=== PATIENT | male | born 1950 | race Caucasian/White ===

== ENCOUNTER → 2020-11-17 13:09 | Outpatient (CLI) | payer OTHER, SELFPAY ==
--- NOTE | 2020-12-06 08:24 | P.HOLT.S_ITS ---
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 Referral & Results Date Patient Seen: 11/17/20 Requesting provider: Betito Victoria Indication: Dizziness Duration of monitoring (days): 7 Diary information: There were 4 patient triggered events and 2 patient diary entries Patient triggered events were associated with (within 45 seconds) sinus rhythm, PVCs, and PACs Patient diary events were associated with (within 45 seconds) sinus rhythm and PVCs Data: Minimum heart rate identified was 53 beats per minute at 06:51 on 11/19/2020 Maximum sinus heart rate was 127 beats per minute at 08:29 on 11/19/2020 Maximum overall heart rate was 200 beats per minute at 07:55 on 11/20/2020 during a run of ventricular tachycardia Less than 1% of identified beats were supraventricular ectopic in origin Approximately 2% of identified beats were ventricular ectopic in origin which were classify them as occasional, this includes a 23.5 sec run of ventricular trigeminy and a 10.1 sec run of ventricular bigeminy There were 3 runs of monomorphic nonsustained ventricular tachycardia the fastest being an 8 beat run at 200 beats per minute as above, this was also the longest run There were 33 runs of supraventricular tachycardia with the fastest at 179 beats per minute the longest lasting 21.0 seconds Impression: Patient with very rare brief runs of nonsustained monomorphic ventricular tachycardia as above Patient was somewhat more frequent very brief runs of SVT as well Patient with occasional PVCs Clinical correlation suggested
== END ==
PROVIDERS: PCP Student in an Organized Health Care Education/Training Program; Referring Provider Student in an Organized Health Care Education/Training Program; Visit Provider Student in an Organized Health Care Education/Training Program
DX: R42 Dizziness and giddiness (principal)
CPT/HCPCS: 93242; 93244

== ENCOUNTER → 2021-03-03 07:58 | Outpatient (CLI) | payer OTHER, SELFPAY ==
--- NOTE | 2021-03-03 07:58 | DI.US.S_ITS ---
PROCEDURE: US ABDOMEN LIMITED INDICATIONS: POSSIBLE SPLENOMEGALY TECHNIQUE: Real-time focused scanning was performed of the abdomen, with image documentation. COMPARISON: None. FINDINGS: Targeted single organ assessment was performed at clinician request. The craniocaudad length of the spleen is abnormal at 19.1 cm, and the overall calculated splenic volume is 660 cc, enlarged. Splenic vein is patent. Two small splenic nodules are found at the hilum, measuring up to 1.6 cm and 1.4 cm, respectively. IMPRESSION: Splenomegaly, 2 small splenule set the splenic hilum. Dictated by: David Santos M.D. on 03/03/2021 at 11:05 Approved by: David Santos M.D. on 03/03/2021 at 11:06
== END ==
PROVIDERS: PCP Student in an Organized Health Care Education/Training Program; Referring Provider Internal Medicine Hematology & Oncology; Visit Provider Internal Medicine Hematology & Oncology
DX: R16.1 Splenomegaly, not elsewhere classified (principal); D73.9 Disease of spleen, unspecified
CPT/HCPCS: 76705

== ENCOUNTER 2021-09-25 08:39 | Emergency (ER) | payer MEDICARE, SELFPAY ==
[2021-09-25] VITALS (8 sets, daily range): BP systolic 153–179; BP diastolic 70–86; PULSE 64–67; RESP 16–20; TEMP 36.3; O2SAT 96–99; BMI 31.4
--- NOTE | 2021-09-25 09:17 | DI.CT.S_ITS ---
PROCEDURE: CT HEAD/BRAIN WO CON INDICATIONS: double vision, 6th nerve palsy, hx myelofibrosis, hx AAA TECHNIQUE: Noncontrast 4.5 mm thick angled axial sections acquired from the foramen magnum to the vertex, with coronal and sagittal reformats. For radiation dose reduction, the following was used: automated exposure control, adjustment of mA and/or kV according to patient size. COMPARISON: None. FINDINGS: Image quality: Excellent. CSF spaces: Basal cisterns are patent. No extra-axial fluid collections. The ventricles are symmetric in size and shape. Brain: No intracranial bleeds or masses. There is cerebral volume loss for age, with resultant ventricular and sulcal prominence. There are periventricular and deep white matter chronic small vessel ischemic changes. There is intracranial internal carotid artery atherosclerosis. Skull and face: Calvarium and visualized facial bones appear intact, without suspicious lesions. Sinuses: Visualized sinuses and mastoids are clear. IMPRESSION: 1. No acute intracranial process. 2. Moderate atrophy and chronic microvascular ischemic changes. Dictated by: Anais Vickers M.D. on 09/25/2021 at 10:10 Approved by: Anais Vickers M.D. on 09/25/2021 at 10:12
--- NOTE | 2021-09-25 09:23 | ED.NEUROSD ---
HPI - Neuro Symptoms/Deficit General Chief Complaint: Neuro Symptoms/Deficit Stated Complaint: possible stroke Time Seen by Provider: 09/25/21 08:45 Source: patient and family Mode of arrival: Wheelchair Limitations: no limitations History of Present Illness HPI Narrative: This is a 71-year-old male who comes with complaint of 1 week of double vision and 4 days of difficulty with movement of his his eyes himself. Patient states left eye will not track appropriately. Patient has a history of suspected myelofibrosis he is on Blas a fee but states that he is the process of being seen by secondary specialty doc is his medications have not been working he has received 5 transfusions of packed red blood cells since 08/28 the most recent was 6 days ago. They suspect that his diagnosis maybe slightly wrong and are working to follow up with a different specialty doc with Dr. Owen his oncologist. He has hypertension, hypothyroid and, known AAA that is 4.1 cm he follows with Dr. Roew through [facility] in [place]. Patient states he has not had similar symptoms in the past. He has had a longstanding left eye proptosis for 25 years which has been measured and followed but no exact cause has been found. Patient states that he was treated for a suspected temporal arteritis years ago was initially on a week of steroids, change to methotrexate was discharged in January of 2021. Patient states that he has been noticing some vision changes for the past month. He has noted for the past week his gait felt a little bit off. He has had a little bit a headache over the left eye for the last several days on and off. He has a history of positional vertigo but has not been having any symptoms recently. No chest pain, some occasional shortness of breath. He has had some nausea but no vomiting. No diarrhea constipation. No bright red blood or melanotic stools. No urinary incontinence or changes. He denies any numbness, weakness or tingling of his extremities. On Anticoagulants: No Related Data Home Medications Medication Instructions Recorded Confirmed furosemide 20 mg tablet 20 mg PO QAM 03/30/21 07/27/21 carvedilol 6.25 mg tablet (Coreg) 6.25 mg PO PRN PRN 07/27/21 07/27/21 Previous Rx's Medication Instructions Recorded levothyroxine 150 mcg capsule 150 mcg PO DAILY #90 cap 08/04/21 ruxolitinib 10 mg tablet (Jakafi) 10 mg PO BID #60 tab 09/18/21 Allergies Allergy/AdvReac Type Severity Reaction Status Date / Time No Known Drug Allergies Allergy Unverified 03/30/21 08:40 Review of Systems Review of Systems ROS Unobtainable: All systems reviewed & are unremarkable except as noted in HPI and below Hematologic/Lymphatic On Anticoagulants: No Patient History Medical History Hyperlipidemia Hypothyroidism Psoriasis Surgical History History of colonoscopy Family History Grandfather Colon cancer Mother COPD (chronic obstructive pulmonary disease) Social History Smoking Status: Former smoker alcohol intake: former substance use type: does not use Smoking Status: Former smoker Substance Use Type: does not use Exam Narrative Exam Narrative: GEN: well nourished, well appearing male, alert and oriented x 3, patient appears to be in mild distress. HEENT: Atraumatic, pupils are equal round reactive to light, extraocular movements appear intact with the right, on the left but has difficulty with gaze inwards. Does not appear to have obvious afferent or efferent defect. Visual acuity: right [20/50], left [20/40] with correction (glasses). General: no globe trauma Eyelids: normal inspection Conjunctiva/Sclera: normal inspection Corneas: normal inspection EOM: intact, + palsy on left. Pupils: PERRL, normal accomadation, pupil normal Anterior Chambers: normal inspection, no hypema Posterior: difficulty to examine but no obvious changes. nares are clear, TMs are clear with no fluid, there is no conjunctival pallor. Throat is clear without any exudates, erythema, tonsillar enlargement or uvular deviation. No facial droop. HEART: Regular rate and rhythm without murmur, clicks, rubs. LUNGS:Lungs clear to auscultation, no wheezes, rales, crackles, chest moves symmetrically ABD:bowel sounds normal, soft, non-tender, no guarding, rebound, rigidity, no masses noted, no hepatosplenomegaly :No CVA tenderness MSCL: Non-tender, no muscle atrophy, muscles strength 5/5 upper and lower extremities, full range of motion, normal gait NEURO:CN 2-12 intact, sensation normal, finger nose finger test normal, heel frias test normal SKIN: Initial Vital Signs Initial Vital Signs: Vital Signs Temperature 97.4 F L 09/25/21 08:54 Pulse Rate 67 09/25/21 08:54 Respiratory Rate 18 09/25/21 08:54 Blood Pressure 179/86 H 09/25/21 08:54 Pulse Oximetry 97 09/25/21 08:54 Scores NIH Stroke Scale Level of Conciousness: Alert, keenly responsive Ask month/age: Answers both questions correctly. Open/close eyes, close hand: Performs both tasks correctly Best gaze horizontal: Forced deviation or total gaze paresis not overcome Visual bill: No visual loss Facial palsy: Normal symetrical movement Left arm drift: No drift for full 10 sec Right arm drift: No drift for full 10 sec Left leg drift: No drift for full 5 sec Right leg drift: No drift for full 5 sec Limb ataxia: Absent Sensory on face/arms/legs: Normal, no sensory loss Best language: No aphasia, normal Dysarthria: Normal Extinction or inattention: No abnormality Total NIH Stroke scale score: 2 Course Orders Ordered: Discontinued Medications Sodium Chloride (Normal Saline 0.9%) 1,000 mls @ 150 mls/hr IV CONT ANA LAURA Last Infusion: 09/25/21 11:59 Dose: 0 mls/hr Documented by: Admin: 09/25/21 10:15 Dose: 150 mls/hr Documented by: MARYAM Reevaluation(s) Reevaluation #1: Discussed with patient his findings CT CT angiography and lab work today. At this time I had consulted with Ophthalmology. They are happy to see the patient today. Will defer MRI at this time but if ophthalmology feels differently patient's will be returned for additional imaging. Otherwise he may require MRI outpatient. Patient states he is already set up an appointment with his retinal specialist in a week as well and has some additional follow-up in place. Time: 11:48 Consultations Consultation #1: Dr. Amor with ophthalmology, discussed a days findings patient's medical history. He would be happy to see the patient in the office he does not feel that MRI today is necessary but if patient had persistent symptoms would potentially be appropriate. Vital Signs Vital signs: Vital Signs - 8 hr 09/25/21 11:32 09/25/21 11:33 Blood Pressure 177/83 H 177/83 H MDM - Neuro Symptoms/Deficit Lab Data Result diagrams: 09/25/21 09:45 Labs: Lab Results 09/25/21 09/25/21 09/25/21 Range/Units 09:45 09:45 09:45 ESR 42 H (0-15) MM/HR PT 15.3 H (10.1-12.7) SECONDS INR 1.3 (0.9-1.3) APTT 40 H (26.4-36.2) SECONDS Sodium 141 (137-145) mmol/L Potassium 4.2 (3.4-5.1) mmol/L Chloride 108 H (98-107) mmol/L Carbon Dioxide 29 (22-32) mmol/L BUN 14 (9-20) mg/dL Creatinine 1.29 H (0.66-1.25) mg/dL Estimated GFR 54.7 L (>60) mL/min BUN/Creatinine Ratio 10.9 (6-22) Glucose 92 (80-110) mg/dL Calcium 8.6 (8.4-10.2) mg/dL Total Bilirubin 0.4 (0.2-1.3) mg/dL AST 44 (17-59) IU/L ALT 21 (<50) IU/L Alkaline Phosphatase 59 (38-126) U/L C-Reactive Protein (<1.0) mg/dL Total Protein 7.0 (6.3-8.2) g/dL Albumin 4.5 (3.5-5.0) g/dL Globulin 2.5 (1.7-4.1) g/dL Albumin/Globulin Ratio 1.8 (1.0-2.8) 09/25/21 Range/Units 09:45 ESR (0-15) MM/HR PT (10.1-12.7) SECONDS INR (0.9-1.3) APTT (26.4-36.2) SECONDS Sodium (137-145) mmol/L Potassium (3.4-5.1) mmol/L Chloride (98-107) mmol/L Carbon Dioxide (22-32) mmol/L BUN (9-20) mg/dL Creatinine (0.66-1.25) mg/dL Estimated GFR (>60) mL/min BUN/Creatinine Ratio (6-22) Glucose (80-110) mg/dL Calcium (8.4-10.2) mg/dL Total Bilirubin (0.2-1.3) mg/dL AST (17-59) IU/L ALT (<50) IU/L Alkaline Phosphatase (38-126) U/L C-Reactive Protein < 0.5 (<1.0) mg/dL Total Protein (6.3-8.2) g/dL Albumin (3.5-5.0) g/dL Globulin (1.7-4.1) g/dL Albumin/Globulin Ratio (1.0-2.8) Imaging Data CT scan - head: Radiologist's Impression: Gaudencio Hodge??71??M??1950 ? Allergy/Adv: No Known Drug Allergies (More??) Close Head/Neck CTA (Signed) Dickson Aguilar - 09/25/[address] (Signed) Anais Vickers - 09/25/21 Outside Echo 05/26/21 Abdomen Ultrasound (Signed) David Santos - 03/03/21 Launch?[place] [address] CT Scan Report Signed Patient: Gaudencio Hodge MR#: [id number] : 1950 Acct:[id number] Age/Sex: 71 / M Date of Service: 09/25/21 Loc: ED Accession Number: [id number] ?? Procedure: CT head/brain wo con Ordering Provider: Breanna Prince D.O. PROCEDURE:? CT HEAD/BRAIN WO CON ? INDICATIONS:? double vision, 6th nerve palsy, hx myelofibrosis, hx AAA ? TECHNIQUE:? Noncontrast 4.5 mm thick angled axial sections acquired from the foramen magnum to the vertex, with coronal and sagittal reformats.? For radiation dose reduction, the following was used:? automated exposure control, adjustment of mA and/or kV according to patient size.? ? COMPARISON:? None. ? FINDINGS:? Image quality:? Excellent.? ? CSF spaces:? Basal cisterns are patent.? No extra-axial fluid collections.? The ventricles are symmetric in size and shape.? ? Brain:? No intracranial bleeds or masses.? There is cerebral volume loss for age, with resultant ventricular and sulcal prominence.? There are periventricular and deep white matter chronic small vessel ischemic changes.? There is intracranial internal carotid artery atherosclerosis.? ? Skull and face:? Calvarium and visualized facial bones appear intact, without suspicious lesions.? ? Sinuses:? Visualized sinuses and mastoids are clear.? ? IMPRESSION:? ? 1. No acute intracranial process. ? 2. Moderate atrophy and chronic microvascular ischemic changes. ? ? ? Dictated by: Anais Vickers M.D. on 09/25/2021 at 10:10 ? ? Approved by: Anais Vickers M.D. on 09/25/2021 at 10:12?? CTA - brain/neck: Radiologist's Impression: [place] [address] CT Scan Report Signed Patient: Gaudencio Hodge MR#: [id number] : 1950 Acct:[id number] Age/Sex: 71 / M Date of Service: 09/25/21 Loc: ED Accession Number: [id number] ?? Procedure: CT angio head and neck Ordering Provider: Breanna Prince D.O. PROCEDURE:? CT ANGIO HEAD AND NECK ? INDICATIONS:? double vision, 6th nerve palsy, hx myelofibrosis ? TECHNIQUE:? Noncontrast images were performed earlier in the day and not repeated.? ? After the administration of intravenous contrast, 1 mm thick sections acquired from the aortic arch through the [place].? Post-contrast 4.5 mm thick sections then re-acquired from the foramen magnum to the vertex.? 3-dimensional mbbhemd-wlczvthum-kmnjjbxtox (MIP) and/or volume rendering reformats were acquired of the central intracranial vasculature and neck separately. ? COMPARISON:? Located Within [facility], CT, NECK SOFT TIS. W/CONTRAST, 03/01/2015, 12:37.? [facility], CT, CT HEAD/BRAIN WO CON, 09/25/2021, 9:30.? Located Within [facility], CT, CT ANGIO CHEST PE, 03/22/2021, 2:13. ? FINDINGS:? Image quality:? Excellent.? ? BRAIN:? CSF spaces:? Ventricles are normal in size and shape.? Basal cisterns are patent.? No extra-axial fluid collections.? ? Brain:? No midline shift.? No intracranial bleeds or masses.? Welch-white matter interface appears intact.? ? Skull and face:? Calvarium and facial bones appear intact, without suspicious lesions.? Orbits appear normal.? ? Sinuses:? Sinuses and mastoids are clear.? ? HEAD CT ANGIOGRAPHY:? Anterior circulation:? Intracranial internal carotid arteries are normal in size and flow.? The flow within the paired anterior cerebral arteries is normal and symmetric.? The flow within the middle cerebral arteries is normal and symmetric.? The anterior communicating artery is seen.? No aneurysms are seen.? ? Posterior circulation:? Visualized portions of the vertebral arteries demonstrate normal caliber, and join to form a normal appearing basilar artery.? There is a prominent left posterior communicating artery seen, with an accompanying diminutive left P1 segment. This is attributed to a type origin of the left posterior cerebral artery, which is considered to be a normal developmental variant of typically no clinical consequence. Flow within the posterior cerebral arteries is normal and symmetric.? No aneurysms are seen.? ? NECK CT ANGIOGRAPHY:? Carotid system:? The great vessels demonstrate a conventional anatomy as they arise from the aortic arch.? The origins of the common carotid arteries appear patent.? The common carotid arteries demonstrate normal caliber and courses.? The bifurcation regions are both widely patent.? The internal carotid arteries demonstrate normal calibers and courses.? ? Posterior circulation:? The origins of the vertebral arteries both appear widely patent.? The more superior extracranial portions of both vertebral arteries also demonstrate normal courses and calibers.? The left vertebral artery is dominant to the right. ? Soft tissues:? Visualized neck soft tissues demonstrate no suspicious abnormalities.? ? Bones:? The bones demonstrate a generalized mildly chalky appearance, which is consistent with the given clinical history.? Moderate to severe disc space narrowing can be seen at C5-C6 and C6-C7.? The ossification of the posterior longitudinal ligament can be seen inferiorly.? Bridging of anterior osteophytes can be seen C3 through T1. Focal degenerative change is seen involving the C1-C2 interface anteriorly. ? ? IMPRESSION:? No hemodynamically significant stenosis can be seen within the intracranial circulation or within the arteries of neck.? ? Bony abnormalities are seen, which are consistent with the given clinical history.? Degenerative changes also seen. ? ? Incidental note is made of: type origin of the left vertebral artery Left vertebral artery dominant to the right ? ? Any quantitative measurements of stenosis were performed using NASCET criteria.? ? ? Dictated by: Dickson Aguilar M.D. on 09/25/2021 at 9:41 ? ? Approved by: Dickson Aguilar M.D. on 09/25/2021 at 9:45?? ECG Data Attestation: I personally reviewed and interpreted this ECG as follows: Prior ECG tracings: available for review Interpretation: Sinus rhythm rate of 70 2p are 198 QRS 86 and QTC 453. No acute ST changes appreciated. Q-wave in V1 through V3. Patient has prior from 02/03/2019 which appears similar. MDM Narrative Medical decision making narrative: This is a 71-year-old male who has had double vision for approximately a week with obvious gaze palsy of 1 eye for the past 4 days. Patient is retired salesperson fashion accessories and is well educated about his findings today. He does have a history of myelofibrosis although this diagnosis is possibly going to change. He is having recurrent and frequent transfusions of packed red blood cells. Head CT and angiography are negative, patient's labs do not show any acute changes. Discussed with ophthalmology he appears to have an isolated cranial nerve palsy causing his symptoms today. They recommend MRI if patient has persistent symptoms over long time but not today and are happy to see him in the office for further evaluation and recommendations. Discussed with patient he is open to this and went directly to Dr. Amor office for evaluation. He also has follow-up in 1 week with his retinal specialist. Discharge Plan Departure Patient Disposition: Home Clinical Impression: Diplopia, Cranial nerve palsy Activity Restrictions/Additional Instructions: Follow-up with ophthalmology. Go directly to Dr. Amor is office. They are expecting you today. Prescriptions: No Action levothyroxine 150 mcg capsule 150 mcg PO DAILY Qty: 90 1RF furosemide 20 mg tablet 20 mg PO QAM 0RF carvedilol [Coreg] 6.25 mg Tablet 6.25 mg PO PRN PRN (Reason: Blood Pressure) 0RF Jakafi 10 mg Tablet 10 mg PO BID Qty: 60 11RF Referrals: Betito Victoria MD [Primary Care Provider] -
--- NOTE | 2021-09-25 09:26 | DI.CT.S_ITS ---
PROCEDURE: CT ANGIO HEAD AND NECK INDICATIONS: double vision, 6th nerve palsy, hx myelofibrosis TECHNIQUE: Noncontrast images were performed earlier in the day and not repeated. After the administration of intravenous contrast, 1 mm thick sections acquired from the aortic arch through the [place] of [place]. Post-contrast 4.5 mm thick sections then re-acquired from the foramen magnum to the vertex. 3-dimensional quqdluh-oxgdtmknr-wxkfdnubft (MIP) and/or volume rendering reformats were acquired of the central intracranial vasculature and neck separately. COMPARISON: [facility], CT, NECK SOFT TIS. W/CONTRAST, 03/01/2015, 12:37. [facility], CT, CT HEAD/BRAIN WO CON, 09/25/2021, 9:30. [facility], CT, CT ANGIO CHEST PE, 03/22/2021, 2:13. FINDINGS: Image quality: Excellent. BRAIN: CSF spaces: Ventricles are normal in size and shape. Basal cisterns are patent. No extra-axial fluid collections. Brain: No midline shift. No intracranial bleeds or masses. Welch-white matter interface appears intact. Skull and face: Calvarium and facial bones appear intact, without suspicious lesions. Orbits appear normal. Sinuses: Sinuses and mastoids are clear. HEAD CT ANGIOGRAPHY: Anterior circulation: Intracranial internal carotid arteries are normal in size and flow. The flow within the paired anterior cerebral arteries is normal and symmetric. The flow within the middle cerebral arteries is normal and symmetric. The anterior communicating artery is seen. No aneurysms are seen. Posterior circulation: Visualized portions of the vertebral arteries demonstrate normal caliber, and join to form a normal appearing basilar artery. There is a prominent left posterior communicating artery seen, with an accompanying diminutive left P1 segment. This is attributed to a type origin of the left posterior cerebral artery, which is considered to be a normal developmental variant of typically no clinical consequence. Flow within the posterior cerebral arteries is normal and symmetric. No aneurysms are seen. NECK CT ANGIOGRAPHY: Carotid system: The great vessels demonstrate a conventional anatomy as they arise from the aortic arch. The origins of the common carotid arteries appear patent. The common carotid arteries demonstrate normal caliber and courses. The bifurcation regions are both widely patent. The internal carotid arteries demonstrate normal calibers and courses. Posterior circulation: The origins of the vertebral arteries both appear widely patent. The more superior extracranial portions of both vertebral arteries also demonstrate normal courses and calibers. The left vertebral artery is dominant to the right. Soft tissues: Visualized neck soft tissues demonstrate no suspicious abnormalities. Bones: The bones demonstrate a generalized mildly chalky appearance, which is consistent with the given clinical history. Moderate to severe disc space narrowing can be seen at C5-C6 and C6-C7. The ossification of the posterior longitudinal ligament can be seen inferiorly. Bridging of anterior osteophytes can be seen C3 through T1. Focal degenerative change is seen involving the C1-C2 interface anteriorly. IMPRESSION: No hemodynamically significant stenosis can be seen within the intracranial circulation or within the arteries of neck. Bony abnormalities are seen, which are consistent with the given clinical history. Degenerative changes also seen. Incidental note is made of: type origin of the left vertebral artery Left vertebral artery dominant to the right Any quantitative measurements of stenosis were performed using NASCET criteria. Dictated by: Dickson Aguilar M.D. on 09/25/2021 at 9:41 Approved by: Dickson Aguilar M.D. on 09/25/2021 at 9:45
[2021-09-25 10:02] LABS: INR 1.3 (0.9-1.3); Prothrombin Time 15.3 SECONDS (10.1-12.7)
[2021-09-25 10:05] LABS: PTT Partial Thromboplastin Tim 40 SECONDS (26.4-36.2)
[2021-09-25 10:08] LABS: Alanine Aminotransferase 21 IU/L (<50); Albumin 4.5 g/dL (3.5-5.0); Albumin Globulin Ratio 1.8 (1.0-2.8); Alkaline Phosphatase 59 U/L (38-126); Aspartate Aminotransferase 44 IU/L (17-59); BUN Creatinine Ratio 10.9 (6-22); Bilirubin Total 0.4 mg/dL (0.2-1.3); Blood Urea Nitrogen 14 mg/dL (9-20); Calcium 8.6 mg/dL (8.4-10.2); Carbon Dioxide 29 mmol/L (22-32); Chloride 108 mmol/L (98-107); Estimated Glomerular Filt Rate 54.7 mL/min (>60); Globulin 2.5 g/dL (1.7-4.1); Glucose 92 mg/dL (80-110); HEMOLYSIS < 15 (0-50); Potassium 4.2 mmol/L (3.4-5.1); Sodium 141 mmol/L (137-145)
[2021-09-25 10:12] LABS: C-Reactive Protein Quant < 0.5 mg/dL (<1.0)
[2021-09-25 10:13] LABS: Erythrocyte Sedimentation Rate 42 MM/HR (0-15)
[2021-09-25] MEDS: SODIUM CHLORIDE 0.9% 1,000 ML 150 ML IV (10:15)
--- NOTE | 2021-09-25 13:30 | PC.NURSE ---
stroke type symptoms: pt and arrived to clinic this morning wanting to speak with a nurse. Pt reported increase double vision and left eye not tracking. pt reports trouble walking; my gait isn't right. states he has had high BP too. pt states double vision x1 week but is getting worse. This RN encouraged pt to go to ED for Evaluation for stroke. pt agrees and taken via wheelchair.
== END 2021-09-25 12:02 | disposition home or self-care (01) ==
PROVIDERS: Emergency Provider Emergency Medicine; PCP Student in an Organized Health Care Education/Training Program
DX: H53.2 Diplopia (principal); G52.9 Cranial nerve disorder, unspecified; R51.9 Headache, unspecified; R03.0 Elevated blood-pressure reading, without diagnosis of hypertension; D47.1 Chronic myeloproliferative disease; D64.9 Anemia, unspecified
CPT/HCPCS: 36415; 70450; 70496; 70498; 80053; 85007; 85025; 85610; 85651; 85730; 86140; 93005; 93010; 96360; 96361; 99285

== ENCOUNTER → 2021-12-11 12:49 | Outpatient (CLI) | payer MEDICARE, SELFPAY ==
--- NOTE | 2021-12-11 12:50 | DI.CT.S_ITS ---
PROCEDURE: CT CHEST WO CON INDICATIONS: AML, lung opacities. TECHNIQUE: Noncontrast 5 mm thick sections acquired from the pulmonary apices to the posterior costophrenic angles. 1 mm lung window, 5 mm thick coronal and sagittal and 7 mm axial MIP reformats were then acquired. For radiation dose reduction, the following was used: automated exposure control, adjustment of mA and/or kV according to patient size. COMPARISON: [facility], CT, CT ANGIO CHEST PE, 03/22/2021, 2:13. [facility], CT, CT ANGIO CHEST, 04/14/2020, 9:55. FINDINGS: Image quality: Excellent. Lungs and pleura: Left basilar pleural effusion is present. Peripheral interlobular septal thickening is present and associated with bilateral lower lobe peripheral consolidation. Additionally, there is prominence of the bilateral lower lobe bronchi. Mediastinum: Heart size is normal. No pericardial effusion. No mediastinal adenopathy by size criteria. Ascending thoracic aorta now measures 4.4 cm in diameter, previously 4.1 cm. Esophagus is normal in caliber. No hiatal hernia. Right-sided central venous line in place. Bones and chest wall: No suspicious bony lesions. No vertebral body compression fractures. No axillary or supraclavicular adenopathy by size criteria. Thyroid gland unremarkable . Abdomen: Splenomegaly, 16 cm is partially imaged. Left hepatic cyst unchanged. IMPRESSION: 1. Increasing peripheral interstitial septal thickening and peripheral consolidation may reflect interstitial pneumonitis. 2. Prominence of the lower lobe bronchi is also increased and may reflect an element of developing bronchiectasis. 3. Ascending thoracic aortic ectasia measures 4.4 cm, previously 4.1 cm 4. Stable left lower lobe pleural effusion. 5. Splenomegaly, partially imaged Approved by: Guru Lopez M.D. on 12/11/2021 at 17:02
== END ==
PROVIDERS: Referring Provider Internal Medicine Hematology & Oncology; Visit Provider Internal Medicine Hematology & Oncology
DX: C92.00 Acute myeloblastic leukemia, not having achieved remission (principal); R91.8 Other nonspecific abnormal finding of lung field; I77.810 Thoracic aortic ectasia; J90 Pleural effusion, not elsewhere classified; R16.1 Splenomegaly, not elsewhere classified
CPT/HCPCS: 71250

== ENCOUNTER 2022-08-27 13:49 | Emergency (ER) | payer MEDICARE, SELFPAY ==
[2022-08-27 14:00] VITALS: BP 133/58; PULSE 70; RESP 16; TEMP 37.2; O2SAT 100; BMI 28.5
[2022-08-27 15:02] LABS: Add Manual Diff / Slide Review NO; Basophils Absolute Auto 0 /uL (0-100); Basophils Percent Auto 0.8 % (0-2); Eosinophils Absolute Auto 0 /uL (0-450); Eosinophils Percent Auto 1.5 % (2-4); Lymphocytes Absolute Auto 500 /uL (1100-4500); Lymphocytes Percent Auto 24.7 % (25-40); Mean Corpuscular HGB Conc 34.9 % (30-36); Mean Corpuscular Volume 80.2 fL (80-100); Monocytes Absolute Auto 200 /uL (0-900); Neutrophils Absolute Auto 1400 /uL (1500-7000); Platelet Count 94 X10^3/uL (150-400); Red Blood Cell Count 2.34 X10^6/uL (4.5-5.9); Red Cell Distribution Width 15.8 % (11.6-14.8); White Blood Cell Count 2.2 X10^3/uL (4.5-11.0)
[2022-08-27 15:04] LABS: Hemoglobin 6.5 g/dL (13.5-17.5)
--- NOTE | 2022-08-27 15:04 | DI.RAD.S_ITS ---
PROCEDURE: XR CHEST 1V INDICATIONS: pneumonia? viral? hx leukemia TECHNIQUE: One view of the chest was acquired. COMPARISON: None. FINDINGS: Surgical changes and devices: Right-sided PICC line tip is in the region of SVC. Lungs and pleura: Lungs are clear. No pleural effusions or pneumothorax. Mediastinum: Mediastinal contours appear normal. Heart size is normal. Bones and chest wall: No suspicious bony lesions. Overlying soft tissues appear unremarkable. IMPRESSION: Right-sided PICC line tip is in SVC. No focal infiltrate, pleural effusion or pneumothorax. Dictated by: Reji Zamorano M.D. on 08/27/2022 at 15:28 Approved by: Reji Zamorano M.D. on 08/27/2022 at 15:29
[2022-08-27 15:05] LABS: Hematocrit 18.7 % (41-53)
--- NOTE | 2022-08-27 15:06 | ED_ITS ---
HPI - Fever <ANAIS Smith - Last Filed: 08/27/22 17:55> General Chief Complaint: Fever Stated Complaint: fever/BP 70 over 148/ cancer PT Time Seen by Provider: 08/27/22 14:56 Source: patient Mode of arrival: Wheelchair History of Present Illness HPI Narrative: This is a 72-year-old gentleman with history of leukemia, myelofibrosis, who presents to the emergency department with a fever that started last night with a T-max of a 102?, chills, congestion, sore throat, states that he is not currently receiving chemo, he is on prophylactic voriconazole and acyclovir but no prophylactic antibiotics. His oncologist is Dr. Napier, He has hypertension, hypothyroid and, known AAA that is 4.1 cm he follows with Dr. Rowe through [facility] in [place].? Patient states he has not had similar symptoms in the past.? Patient states that his post chemotherapy course included cefpodoxime but he has not been on this for some time. Patient is monitored banding each week with a CBC and CMP and has PRBCs and platelet transfusions as needed, his threshold for transfusion is H&H less than [address] Villagomez told patient to go to the emergency department for antibiotics since he has bony erosion of his teeth with evidence of dental abscess and this as a likely source of infection. Related Data Home Medications Medication Instructions Recorded Confirmed multivitamin 1 tab PO DAILY 12/04/21 06/21/22 polyethylene glycol 3350 17 17 g PO DAILY 12/04/21 06/21/22 gram/dose oral powder (Miralax) triamcinolone acetonide 0.5 % 1 applic topical BID 12/04/21 06/21/22 topical ointment midodrine 2.5 mg tablet 2.5 mg PO PRN PRN Blood Pressure 01/24/22 06/21/22 Previous Rx's Medication Instructions Recorded levothyroxine 150 mcg tablet 150 mcg PO DAILY #90 tabs 01/01/22 ondansetron 8 mg disintegrating 8 mg PO Q8H PRN nauseau #30 tabs 01/30/22 tablet ondansetron 8 mg disintegrating 8 mg PO Q8H PRN Nausea And 02/05/22 tablet Vomiting #30 tabs azacitidine 200 mg tablet (Onureg) 200 mg PO DIRECTED #14 tabs 03/08/22 acyclovir 800 mg tablet 800 mg PO BID #180 tabs 05/03/22 voriconazole 200 mg tablet 200 mg PO Q12H #180 tabs 05/03/22 amoxicillin 875 mg-potassium 1 tab PO BID 10 days #20 tabs 08/27/22 clavulanate 125 mg tablet benzocaine 15 mg-menthol 2.6 mg 1 shukri mucous membrane Q2-4H PRN 08/27/22 lozenges (Cepacol Sore Throat sore throat #16 ea (benzocaine-menthol)) cetirizine 10 mg tablet 20 mg PO BEDTIME #14 tabs 08/27/22 dexamethasone 4 mg tablet 4 mg PO DAILY #4 tabs 08/27/22 dexamethasone 6 mg tablet 6 mg PO DAILY #4 tabs 08/27/22 guaifenesin 600 mg tablet, 600 mg PO BID PRN productive cough 08/27/22 extended release 12 hr #20 tabs nirmatrelvir 300 mg (150 mg 2 tab PO QAM AND QPM 5 days #20 08/28/22 x2)-ritonavir 100 mg tablet,dose tabs pack(EUA) (Paxlovid) Allergies Allergy/AdvReac Type Severity Reaction Status Date / Time No Known Drug Allergies Allergy Verified 08/28/22 11:36 Review of Systems <ANAIS Smith - Last Filed: 08/27/22 17:55> Review of Systems ROS Unobtainable: All systems reviewed & are unremarkable except as noted in HPI and below Patient History <ANAIS Smith - Last Filed: 08/27/22 17:55> Medical History Hyperlipidemia Hypothyroidism Psoriasis Surgical History History of colonoscopy Family History Grandfather Colon cancer Mother COPD (chronic obstructive pulmonary disease) Social History Smoking Status: Former smoker alcohol intake: former substance use type: does not use Smoking Status: Former smoker Substance Use Type: does not use Exam <ANAIS Smith - Last Filed: 08/27/22 17:55> Narrative Exam Narrative: Reviewed vitals signs and nursing notes. General: cooperative, comfortable, appears fatigued, mildly pale well groomed, low-grade elevated temperature HEENT: symmetrical facial expressions, moist mucous membranes, broken crown with dental pain Cardiovascular: regular rate and rhythm, no peripheral edema, warm extremities Respiratory: normal effort, able to speak in complete sentences, without wheezing, stridor, or abnormal breath sounds. No retractions or tachypnea. MSK: moves all extremities, neurovascularly intact, no weakness, normal tone Skin: brisk capillary refill, without pallor or erythema Neuro: normal speech and cognition, A&O x3, ambulatory, clear speech Psych: mental status is grossly normal, congruent mood, normal affect, pleasant and cooperative Initial Vital Signs Initial Vital Signs: Vital Signs Temperature 99.0 F 08/27/22 14:00 Pulse Rate 70 08/27/22 14:00 Respiratory Rate 16 08/27/22 14:00 Blood Pressure 133/58 L 08/27/22 14:00 Pulse Oximetry 100 08/27/22 14:00 Oxygen Delivery Method 08/27/22 14:00 <Nancie Stockton DO - Last Filed: 08/28/22 18:52> Initial Vital Signs Initial Vital Signs: Vital Signs Temperature 99.0 F 08/27/22 14:00 Pulse Rate 70 08/27/22 14:00 Respiratory Rate 16 08/27/22 14:00 Blood Pressure 133/58 L 08/27/22 14:00 Pulse Oximetry 100 08/27/22 14:00 Oxygen Delivery Method 08/27/22 14:00 Course <ANAIS Smith - Last Filed: 08/27/22 17:55> Course Course Narrative: Chart review patient's last oncology progress note from Dr. 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 Orders Ordered: Discontinued Medications Acetaminophen (Acetaminophen 325 Mg Tablet) 650 mg PO NOW ONE Stop: 08/27/22 15:54 Last Admin: 08/27/22 17:43 Dose: Not Given Documented By: LEODAN Amoxicillin/Clavulanate Potassium (Amoxicillin/Clav 875/125 Mg) 1 tab PO NOW ONE Stop: 08/27/22 15:07 Last Admin: 08/27/22 17:43 Dose: 1 tab Documented By: LEODAN Benzocaine (Benzocaine/Menthol 1 Shukri Pkt) 1 each PO NOW ONE Stop: 08/27/22 15:54 Last Admin: 08/27/22 17:42 Dose: 1 each Documented By: LEODAN Dexamethasone (Dexamethasone 10 Mg/Ml Vial) 10 mg PO NOW ONE Stop: 08/27/22 15:45 Last Admin: 08/27/22 17:42 Dose: 10 mg Documented By: LEODAN Guaifenesin (Guaifenesin Er 600 Mg Tab) 600 mg PO NOW ONE Stop: 08/27/22 15:54 Last Admin: 08/27/22 17:42 Dose: 600 mg Documented By: LEODAN Remdesivir 200 mg/ Sodium (Chloride) 250 mls @ 250 mls/hr IV NOW ONE Stop: 08/27/22 16:46 Last Infusion: 08/27/22 17:57 Dose: 0 mls/hr Documented By: Admin: 08/27/22 16:36 Dose: 250 mls/hr Documented By: LEODAN Loratadine (Loratadine 10 Mg Tablet) 10 mg PO NOW ONE Stop: 08/27/22 15:54 Last Admin: 08/27/22 17:43 Dose: 10 mg Documented By: LEODAN Consultations Consultation #1: Consultation with Dr. Vishnu Napier patient's oncologist who states that patient does not have a PCP, informed him of his COVID positive infection, is in agre ement about treating for possible dental abscess infection with Augmentin, agrees with remdesivir and dexamethasone plan for treatment, there are no hospital beds available, patient is without hypoxia, shortness of breath, difficulty breathing, abnormal findings on chest x-ray, or severe disease today. Patient will return for the next 2 days to the emergency department to receive his 100 mg infusions of remdesivir. Vital Signs Vital signs: Vital Signs - 8 hr 08/27/22 14:00 Temperature 99.0 F Pulse Rate 70 Respiratory Rate 16 Blood Pressure 133/58 L Pulse Oximetry 100 Oxygen Delivery Method Room Air <Nancie Stockton DO - Last Filed: 08/28/22 18:52> Orders Ordered: Discontinued Medications Acetaminophen (Acetaminophen 325 Mg Tablet) 650 mg PO NOW ONE Stop: 08/27/22 15:54 Last Admin: 08/27/22 17:43 Dose: Not Given Documented By: LEODAN Amoxicillin/Clavulanate Potassium (Amoxicillin/Clav 875/125 Mg) 1 tab PO NOW ONE Stop: 08/27/22 15:07 Last Admin: 08/27/22 17:43 Dose: 1 tab Documented By: LEODAN Benzocaine (Benzocaine/Menthol 1 Shukri Pkt) 1 each PO NOW ONE Stop: 08/27/22 15:54 Last Admin: 08/27/22 17:42 Dose: 1 each Documented By: LEODAN Dexamethasone (Dexamethasone 10 Mg/Ml Vial) 10 mg PO NOW ONE Stop: 08/27/22 15:45 Last Admin: 08/27/22 17:42 Dose: 10 mg Documented By: LEODAN Guaifenesin (Guaifenesin Er 600 Mg Tab) 600 mg PO NOW ONE Stop: 08/27/22 15:54 Last Admin: 08/27/22 17:42 Dose: 600 mg Documented By: LEODAN Remdesivir 200 mg/ Sodium (Chloride) 250 mls @ 250 mls/hr IV NOW ONE Stop: 08/27/22 16:46 Last Infusion: 08/27/22 17:57 Dose: 0 mls/hr Documented By: Admin: 08/27/22 16:36 Dose: 250 mls/hr Documented By: LEODAN Loratadine (Loratadine 10 Mg Tablet) 10 mg PO NOW ONE Stop: 08/27/22 15:54 Last Admin: 08/27/22 17:43 Dose: 10 mg Documented By: LEODAN Vital Signs Vital signs: Vital Signs - 8 hr 08/27/22 14:00 Temperature 99.0 F Pulse Rate 70 Respiratory Rate 16 Blood Pressure 133/58 L Pulse Oximetry 100 Oxygen Delivery Method Room Air MDM - Fever <ANAIS Smith - Last Filed: 08/27/22 17:55> Lab Data Lab results narrative: Patient is below his transfusion H&H threshold of 7 and 23, H&H today is 7 and 23 is 6 and 18.[address] Napier who states that patient does not need transfusion today. Result diagrams: 08/27/22 14:52 08/27/22 14:52 Labs: Lab Results 08/27/22 08/27/22 08/27/22 Range/Units 14:52 14:52 14:52 WBC 2.2 L (4.5-11.0) X10^3/uL RBC 2.34 L (4.5-5.9) X10^6/uL Hgb 6.5 L* (13.5-17.5) g/dL Hct 18.7 L* (41-53) % MCV 80.2 (80-100) fL MCH 28.0 (26-34) PG MCHC 34.9 (30-36) % RDW 15.8 H (11.6-14.8) % Plt Count 94 L (150-400) X10^3/uL Neut % (Auto) 64.0 (50-75) % Lymph % (Auto) 24.7 L (25-40) % [place] % (Auto) 9.0 (3-14) % Eos % (Auto) 1.5 L (2-4) % Baso % (Auto) 0.8 (0-2) % Neut # (Auto) 1400 L (4884-3334) /uL Lymph # (Auto) 500 L (2920-9182) /uL [place] # (Auto) 200 (0-900) /uL Eos # (Auto) 0 (0-450) /uL Baso # (Auto) 0 (0-100) /uL Sodium 137 (137-145) mmol/L Potassium 4.1 (3.4-5.1) mmol/L Chloride 101 (98-107) mmol/L Carbon Dioxide 27 (22-32) mmol/L BUN 18 (9-20) mg/dL Creatinine 0.78 (0.66-1.25) mg/dL Estimated GFR > 60 (>60) mL/min BUN/Creatinine Ratio 23.1 H (6-22) Glucose 105 (80-110) mg/dL Lactate 0.8 (0.7-2.1) mmol/L Calcium 8.3 L (8.4-10.2) mg/dL Total Bilirubin 0.6 (0.2-1.3) mg/dL AST 47 (17-59) IU/L ALT 49 (<50) IU/L Alkaline Phosphatase 182 H (38-126) U/L Total Protein 7.0 (6.3-8.2) g/dL Albumin 4.1 (3.5-5.0) g/dL Globulin 2.9 (1.7-4.1) g/dL Albumin/Globulin Ratio 1.4 (1.0-2.8) SARS-CoV-2 (PCR) (Negative) Influenza A (RT-PCR) (NEGATIVE) Influenza B (RT-PCR) (NEGATIVE) RSV (PCR) (Negative) 08/27/22 Range/Units 14:52 WBC (4.5-11.0) X10^3/uL RBC (4.5-5.9) X10^6/uL Hgb (13.5-17.5) g/dL Hct (41-53) % MCV (80-100) fL MCH (26-34) PG MCHC (30-36) % RDW (11.6-14.8) % Plt Count (150-400) X10^3/uL Neut % (Auto) (50-75) % Lymph % (Auto) (25-40) % [place] % (Auto) (3-14) % Eos % (Auto) (2-4) % Baso % (Auto) (0-2) % Neut # (Auto) (1513-3574) /uL Lymph # (Auto) (4881-7155) /uL [place] # (Auto) (0-900) /uL Eos # (Auto) (0-450) /uL Baso # (Auto) (0-100) /uL Sodium (137-145) mmol/L Potassium (3.4-5.1) mmol/L Chloride (98-107) mmol/L Carbon Dioxide (22-32) mmol/L BUN (9-20) mg/dL Creatinine (0.66-1.25) mg/dL Estimated GFR (>60) mL/min BUN/Creatinine Ratio (6-22) Glucose (80-110) mg/dL Lactate (0.7-2.1) mmol/L Calcium (8.4-10.2) mg/dL Total Bilirubin (0.2-1.3) mg/dL AST (17-59) IU/L ALT (<50) IU/L Alkaline Phosphatase (38-126) U/L Total Protein (6.3-8.2) g/dL Albumin (3.5-5.0) g/dL Globulin (1.7-4.1) g/dL Albumin/Globulin Ratio (1.0-2.8) SARS-CoV-2 (PCR) Positive H (Negative) Influenza A (RT-PCR) Flu a negative (NEGATIVE) Influenza B (RT-PCR) Flu b negative (NEGATIVE) RSV (PCR) Negative (Negative) Imaging Data Chest x-ray: Radiologist's Impression: PROCEDURE:? XR CHEST 1V ? INDICATIONS:? pneumonia? viral? hx leukemia ? TECHNIQUE:? One view of the chest was acquired.? ? COMPARISON:? None. ? FINDINGS:? ? Surgical changes and devices:? Right-sided PICC line tip is in the region of SVC. ? Lungs and pleura:? Lungs are clear.? No pleural effusions or pneumothorax.? ? Mediastinum:? Mediastinal contours appear normal.? Heart size is normal.? ? Bones and chest wall:? No suspicious bony lesions.? Overlying soft tissues appear unremarkable.? ? IMPRESSION:? Right-sided PICC line tip is in SVC.? No focal infiltrate, pleural effusion or pneumothorax. ? ? Dictated by: Reji Zamorano M.D. on 08/27/2022 at 15:28 ? ? Approved by: Reji Zamorano M.D. on 08/27/2022 at 15:29 ? [facility] Narrative Medical decision making narrative: This is a 72-year-old gentleman presents emergency department with fever for the last 24 hours, history of myelofibrosis, who tested positive for COVID-19 today. His oncologist is Dr. Ortiz who agrees that patient should be treated with remdesivir x3 days, Decadron, he will return to the emergency department for this for the next 2 days to receive 100 mg of IV remdesivir. He will take his Decadron at home and follow-up at his next oncology appointment on . He has history of blood transfusions weekly as needed for transfusion hemoglobin/hematocrit threshold of 7 and 23. Today he was below that at 6.[address] Napier states that patient does not need transfused today for that he will be transfused in 3 days. Patient's lab work otherwise is stable compared with his prior lab work. Chest x-ray did not show any acute cardiopulmonary abnormality, right upper arm PICC tip is in the region of the SVC. Patient received 200 mg of remdesivir, Decadron, although patient is not hypoxic, he is significantly immunosuppressed and remains on his acyclovir and voriconazole for fungal and viral prophylaxis. He will take the Augmentin for bacterial prophylaxis against his dental infection. Patient was sent here for concern about hypotension but was not hypotensive for us or showing any severe symptoms of illness. COVID PCR is positive. Patient has infusion scheduled for , patient will follow-up with Dr. Napier to determine if he can go to this or not, no transfusion today, patient will follow-up at his regular appointment. He is without shortness of breath, severe symptoms, hypoxia, difficulty breathing or wheezing. Patient is appropriate and amenable to discharge home. Vital signs are stable on repeat examination is unremarkable. Patient has been informed of results. Patient has been given strict return to ER precautions for any new or worsening symptoms. Patient understands to follow up closely with outpatient providers as instructed. Patient understands plan and agrees to discharge home. All questions and concerns answered at this time. <Nancie Stockton, DO - Last Filed: 08/28/22 18:52> Lab Data Labs: Lab Results 08/27/22 08/27/22 08/27/22 Range/Units 14:52 14:52 14:52 WBC 2.2 L (4.5-11.0) X10^3/uL RBC 2.34 L (4.5-5.9) X10^6/uL Hgb 6.5 L* (13.5-17.5) g/dL Hct 18.7 L* (41-53) % MCV 80.2 (80-100) fL MCH 28.0 (26-34) PG MCHC 34.9 (30-36) % RDW 15.8 H (11.6-14.8) % Plt Count 94 L (150-400) X10^3/uL Neut % (Auto) 64.0 (50-75) % Lymph % (Auto) 24.7 L (25-40) % [place] % (Auto) 9.0 (3-14) % Eos % (Auto) 1.5 L (2-4) % Baso % (Auto) 0.8 (0-2) % Neut # (Auto) 1400 L (3510-7674) /uL Lymph # (Auto) 500 L (6849-5307) /uL [place] # (Auto) 200 (0-900) /uL Eos # (Auto) 0 (0-450) /uL Baso # (Auto) 0 (0-100) /uL Sodium 137 (137-145) mmol/L Potassium 4.1 (3.4-5.1) mmol/L Chloride 101 (98-107) mmol/L Carbon Dioxide 27 (22-32) mmol/L BUN 18 (9-20) mg/dL Creatinine 0.78 (0.66-1.25) mg/dL Estimated GFR > 60 (>60) mL/min BUN/Creatinine Ratio 23.1 H (6-22) Glucose 105 (80-110) mg/dL Lactate 0.8 (0.7-2.1) mmol/L Calcium 8.3 L (8.4-10.2) mg/dL Total Bilirubin 0.6 (0.2-1.3) mg/dL AST 47 (17-59) IU/L ALT 49 (<50) IU/L Alkaline Phosphatase 182 H (38-126) U/L Total Protein 7.0 (6.3-8.2) g/dL Albumin 4.1 (3.5-5.0) g/dL Globulin 2.9 (1.7-4.1) g/dL Albumin/Globulin Ratio 1.4 (1.0-2.8) SARS-CoV-2 (PCR) (Negative) Influenza A (RT-PCR) (NEGATIVE) Influenza B (RT-PCR) (NEGATIVE) RSV (PCR) (Negative) 08/27/22 Range/Units 14:52 WBC (4.5-11.0) X10^3/uL RBC (4.5-5.9) X10^6/uL Hgb (13.5-17.5) g/dL Hct (41-53) % MCV (80-100) fL MCH (26-34) PG MCHC (30-36) % RDW (11.6-14.8) % Plt Count (150-400) X10^3/uL Neut % (Auto) (50-75) % Lymph % (Auto) (25-40) % [place] % (Auto) (3-14) % Eos % (Auto) (2-4) % Baso % (Auto) (0-2) % Neut # (Auto) (6429-4442) /uL Lymph # (Auto) (7318-4462) /uL [place] # (Auto) (0-900) /uL Eos # (Auto) (0-450) /uL Baso # (Auto) (0-100) /uL Sodium (137-145) mmol/L Potassium (3.4-5.1) mmol/L Chloride (98-107) mmol/L Carbon Dioxide (22-32) mmol/L BUN (9-20) mg/dL Creatinine (0.66-1.25) mg/dL Estimated GFR (>60) mL/min BUN/Creatinine Ratio (6-22) Glucose (80-110) mg/dL Lactate (0.7-2.1) mmol/L Calcium (8.4-10.2) mg/dL Total Bilirubin (0.2-1.3) mg/dL AST (17-59) IU/L ALT (<50) IU/L Alkaline Phosphatase (38-126) U/L Total Protein (6.3-8.2) g/dL Albumin (3.5-5.0) g/dL Globulin (1.7-4.1) g/dL Albumin/Globulin Ratio (1.0-2.8) SARS-CoV-2 (PCR) Positive H (Negative) Influenza A (RT-PCR) Flu a negative (NEGATIVE) Influenza B (RT-PCR) Flu b negative (NEGATIVE) RSV (PCR) Negative (Negative) Discharge Plan Departure Patient Disposition: Home Clinical Impression: History of myelofibrosis, COVID-19 Fever Qualifiers: Fever type: unspecified Qualified Code(s): R50.9 - Fever, unspecified Instructions: DI for Fever (Symptom) -- Adult, COVID-19 Activity Restrictions/Additional Instructions: *You have been diagnosed with COVID-19. This is likely why you have increased sinus and dental pain. I have sent a prescription of augmentin for dental infection to [facility] for bacterial infection prophylaxis. Please come back to emergency department for the next 2 days for 100 mg remdesiv ir infusions. Please take 10 mg of dexamethasone for the next 4 days, follow-up with Dr. Napier at your next appointment as scheduled, he has been updated about your status in notes. Okay to take the antibiotic twice a day for the next 10 days for dental infection and bacterial infection prophylaxis. Stay hydrated, shortness of breath is part of how COVID feels, if you have severe shortness of breath, come back to the emergency department for evaluation. Your oxygen, vital signs, and lab work overall is reassuring that this is not significantly worsening yet. Hopefully your course will be decreased in severity and length of time of illness. I hope you feel better soon. Please use cetirizine/Zyrtec as needed for congestion each night, guaifenesin for productive cough, this is the same as Mucinex, throat lozenges as needed, and take 10 mg of dexamethasone for the next 4 days. *What to do: *Please continue to take your regular medications as directed. [x ] New medication prescriptions sent to your pharmacy: [[facility] ] [ ] New medication written as a paper prescription [ ] No new medications given *Please follow up with your primary care provider in 2-3 days, call for an appointment. Let them know you were seen in the Emergency Department and that we asked that you be seen for follow-up. We will electronically transmit a record of today's note if your PCP is in our system *If you do not have a primary care provider please contact [phone] to establish care with one of the [facility] primary care providers. *Return to Emergency Department if you should have any new, worsening, or concerning symptoms, such as [fever greater than 101F, chills, worsening pain, persistent vomiting or other bothersome symptoms]. Prescriptions: New amoxicillin-pot clavulanate 875-125 mg tablet 1 tab PO BID 10 Days Qty: 20 0RF dexamethasone 6 mg tablet 6 mg PO DAILY Qty: 4 0RF dexamethasone 4 mg tablet 4 mg PO DAILY Qty: 4 0RF Cepacol Sore Throat (jeni-men) 15-2.6 mg lozenge 1 shukri mucous membrane Q2-4H PRN (Reason: sore throat) Qty: 16 0RF guaifenesin 600 mg tablet extended release 12hr 600 mg PO BID PRN (Reason: productive cough) Qty: 20 0RF cetirizine 10 mg tablet 20 mg PO BEDTIME Qty: 14 0RF No Action levothyroxine 150 mcg tablet 150 mcg PO DAILY Qty: 90 0RF Rx Instructions: APPT DUE W/PCP PRIOR TO END OF RX/FUTURE FILLS. PLEASE CALL TO SCHEDULE ANNUAL REVIEW AT EARLIEST CONVENIENCE. THANK YOU 01/01/22 midodrine 2.5 mg tablet 2.5 mg PO PRN PRN (Reason: Blood Pressure) multivitamin Tablet 1 tab PO DAILY triamcinolone acetonide 0.5 % Ointment 1 applic TOPICAL BID polyethylene glycol 3350 [Miralax] 17 gram/dose Powder 17 g PO DAILY ondansetron 8 mg Tablet,Disintegrating 8 mg PO Q8H PRN (Reason: nauseau) Qty: 30 1RF ondansetron 8 mg Tablet,Disintegrating 8 mg PO Q8H PRN (Reason: Nausea And Vomiting) Qty: 30 1RF Onureg 200 mg Tablet 200 mg PO DIRECTED Qty: 14 11RF Rx Instructions: Take 1 pill (200 mg) by mouth on days 1-14 every 28 days acyclovir 800 mg Tablet 800 mg PO BID Qty: 180 1RF voriconazole 200 mg Tablet 200 mg PO Q12H Qty: 180 1RF Rx Instructions: administer on empty stomach, at least 1 hour before or after meal(s) Paxlovid (EUA) 300 mg (150 mg x 2)-100 mg tablets,dose pack 2 tab PO QAM AND QPM 5 Days Qty: 20 0RF Referrals: Gale Coffey DO [Primary Care Provider] - Mariya Napier MD [Physician] - Visit Report Forms: Patient Portal/API <Nancie Stockton DO - Last Filed: 08/28/22 18:52> Cosign ED Attending Carlosature Attestation: I was immediately available in the department for consultation. Documentation has been reviewed. I agree with assessment and plan.
[2022-08-27 15:22] LABS: Alanine Aminotransferase 49 IU/L (<50); Albumin 4.1 g/dL (3.5-5.0); Albumin Globulin Ratio 1.4 (1.0-2.8); Alkaline Phosphatase 182 U/L (38-126); Aspartate Aminotransferase 47 IU/L (17-59); BUN Creatinine Ratio 23.1 (6-22); Bilirubin Total 0.6 mg/dL (0.2-1.3); Blood Urea Nitrogen 18 mg/dL (9-20); Calcium 8.3 mg/dL (8.4-10.2); Carbon Dioxide 27 mmol/L (22-32); Chloride 101 mmol/L (98-107); Estimated Glomerular Filt Rate > 60 mL/min (>60); Globulin 2.9 g/dL (1.7-4.1); Glucose 105 mg/dL (80-110); HEMOLYSIS < 15 (0-50); Lactate (Lactic Acid) 0.8 mmol/L (0.7-2.1); Potassium 4.1 mmol/L (3.4-5.1); Sodium 137 mmol/L (137-145)
[2022-08-27 15:39] LABS: Influenza A - CEPHEID Flu A NEGATIVE (NEGATIVE); Influenza B - CEPHEID Flu B NEGATIVE (NEGATIVE); Respiratory Syncytial Virus Negative (Negative)
[2022-08-27 15:40] LABS: COVID-19 CEPHEID 4-PLEX PCR POSITIVE (Negative)
[2022-08-27] MEDS: REMDESIVIR 200 MG in SODIUM CHLORIDE 0.9% 210 ML 250 MG IV (16:36)
[2022-08-27] MEDS: BENZOCAINE/MENTHOL 1 LOZ PKT 1 EACH PO (17:42)
[2022-08-27] MEDS: guaiFENesin ER 600 MG TAB PO (17:42)
[2022-08-27] MEDS: DEXAMETHASONE 10 MG/ML VIAL PO (17:42)
[2022-08-27] MEDS: AMOXICILLIN/CLAV 875/125 MG 1 TAB PO (17:43)
[2022-08-27] MEDS: LORATADINE 10 MG TABLET PO (17:43)
[2022-08-27 18:01] VITALS: PULSE 78; RESP 18; O2SAT 99
== END 2022-08-27 18:03 | disposition home or self-care (01) ==
PROVIDERS: Emergency Medicine; Emergency Provider Nurse Practitioner Critical Care Medicine; PCP Student in an Organized Health Care Education/Training Program
DX: U07.1 COVID-19 (principal); R50.9 Fever, unspecified; C92.00 Acute myeloblastic leukemia, not having achieved remission; Z86.2 Personal history of diseases of the blood and blood-forming organs and certain disorders involving the immune mechanism
CPT/HCPCS: 0241U; 71045; 80053; 83605; 85025; 96365; 99284; J1100

== ENCOUNTER 2022-08-28 10:52 | Emergency (ER) | payer MEDICARE, SELFPAY ==
[2022-08-28 11:36] VITALS: BP 113/57; PULSE 81; RESP 15; TEMP 36.1; O2SAT 99; BMI 28.4
--- NOTE | 2022-08-28 14:27 | ED_ITS ---
HPI - Recheck/Abnormal Lab/Rx General Chief Complaint: Recheck/Abnormal Lab/Rx Stated Complaint: returning pt for infusion Time Seen by Provider: 08/28/22 14:27 Source: patient Mode of arrival: Ambulatory History of Present Illness HPI narrative: Patient is a 72-year-old male history of leukemia, myelofibrosis, chronic anemia presents today with known COVID-19 infection. He was seen and evaluated here yesterday. He received 1 dose of IV remdesivir. He is not hypoxic. Plan was made with oncology to return today for 2nd dose of IV remdesivir. Patient says that he is actually feeling a bit better. He is not requiring oxygen. And he is currently afebrile. He is not having any shortness of breath he has no chest pain. Related Data Home Medications Medication Instructions Recorded Confirmed multivitamin 1 tab PO DAILY 12/04/21 06/21/22 polyethylene glycol 3350 17 17 g PO DAILY 12/04/21 06/21/22 gram/dose oral powder (Miralax) triamcinolone acetonide 0.5 % 1 applic topical BID 12/04/21 06/21/22 topical ointment midodrine 2.5 mg tablet 2.5 mg PO PRN PRN Blood Pressure 01/24/22 06/21/22 Previous Rx's Medication Instructions Recorded levothyroxine 150 mcg tablet 150 mcg PO DAILY #90 tabs 01/01/22 ondansetron 8 mg disintegrating 8 mg PO Q8H PRN nauseau #30 tabs 01/30/22 tablet ondansetron 8 mg disintegrating 8 mg PO Q8H PRN Nausea And 02/05/22 tablet Vomiting #30 tabs azacitidine 200 mg tablet (Onureg) 200 mg PO DIRECTED #14 tabs 03/08/22 acyclovir 800 mg tablet 800 mg PO BID #180 tabs 05/03/22 voriconazole 200 mg tablet 200 mg PO Q12H #180 tabs 05/03/22 amoxicillin 875 mg-potassium 1 tab PO BID 10 days #20 tabs 08/27/22 clavulanate 125 mg tablet benzocaine 15 mg-menthol 2.6 mg 1 arelis mucous membrane Q2-4H PRN 08/27/22 lozenges (Cepacol Sore Throat sore throat #16 ea (benzocaine-menthol)) cetirizine 10 mg tablet 20 mg PO BEDTIME #14 tabs 08/27/22 dexamethasone 4 mg tablet 4 mg PO DAILY #4 tabs 08/27/22 dexamethasone 6 mg tablet 6 mg PO DAILY #4 tabs 08/27/22 guaifenesin 600 mg tablet, 600 mg PO BID PRN productive cough 08/27/22 extended release 12 hr #20 tabs nirmatrelvir 300 mg (150 mg 2 tab PO QAM AND QPM 5 days #20 08/28/22 x2)-ritonavir 100 mg tablet,dose tabs pack(EUA) (Paxlovid) Allergies Allergy/AdvReac Type Severity Reaction Status Date / Time No Known Drug Allergies Allergy Verified 08/28/22 11:36 Review of Systems Review of Systems Narrative: GENERAL: Denies chills,fever HEENT: Denies throat pain RESPIRATORY: Denies dyspnea, cough, wheezing CARDIOVASCULAR: Denies chest pain, palpitations GASTROINTESTINAL: Denies nausea, vomiting MUSCULOSKELETAL: Denies extremity pain, injury SKIN: No rash, no laceration, no pruritus NEUROLOGIC: Denies weakness, dizziness, headache, numbness 8 point review of systems is negative except for those stated above and HPI Patient History Medical History Hyperlipidemia Hypothyroidism Psoriasis Surgical History History of colonoscopy Family History Grandfather Colon cancer Mother COPD (chronic obstructive pulmonary disease) Social History Smoking Status: Former smoker alcohol intake: former substance use type: does not use Smoking Status: Former smoker Substance Use Type: does not use Exam Initial Vital Signs Initial Vital Signs: Vital Signs Temperature 96.9 F L 08/28/22 11:36 Pulse Rate 81 08/28/22 11:36 Respiratory Rate 15 08/28/22 11:36 Blood Pressure 113/57 L 08/28/22 11:36 Pulse Oximetry 99 08/28/22 11:36 Oxygen Delivery Method 08/28/22 11:36 GENERAL: Alert pleasant 72-year-old male HEENT: Head atraumatic,EOMI, pupils reactive, face symmetric, moist mucous membranes CARDIOVASCULAR: Regular rate and rhythm without murmurs, rubs or gallops. RESPIRATORY: Breath sounds equal bilaterally, no wheezes rales or rhonchi. Speaks in full sentences without respiratory distress EXTREMITIES: Normal range of motion, no clubbing or edema. Neurovascularly intact NEUROLOGICAL: Alert and oriented x4. SKIN: Warm, dry, no laceration, no petechiae, no rashes or lesions. Course Vital Signs Vital signs: Vital Signs - 8 hr 08/28/22 15:43 Pulse Rate 80 Respiratory Rate 18 Blood Pressure 130/63 Pulse Oximetry 100 Oxygen Delivery Method Room Air MDM - Recheck/Abnormal Lab/Rx MDM Narrative Medical decision making narrative: Patient is immunocompromised and high risk for severe disease. He is not requiring oxygen he was not requiring oxygen yesterday. At this time I spoke with Oncology Dr. Napier, about Paxlovid or setting up outpatient infusions if he wanted IV remdesivir. At this time he states that there is no contraindication to Paxlovid. Recommended talking to id or hospitalist or somebody who treats COVID on a regular basis. I spoke with Dr. Salguero, hospitalist about outpatient remdesivir, he was unsure of this as a current practice. Patient really does not seem candidate for outpatient IV remdesivir. There is no contraindication to Paxlovid. His symptoms started about 3 days ago. He is still within the window to benefit from Paxlovid. Have discussed this with patient multiple other providers. At this time recommendation is for outpatient oral medication. Continue to monitor and check oxygen as needed. Patient apparently does have an appointment in a couple of days with his oncologist. I discussed with patient medication interactions including midodrine and dexamethasone. Patient states that he is no longer taking midodrine. He has ongoing blood pressure fluctuations his healthcare interpreter gave it to him. Patient is chronically anemic there was no indication for blood transfusion yesterday per Oncology. At this time I see no need for repeating blood work. Patient is ambulatory he is breathing easier. Discharge Plan Departure Patient Disposition: Home Clinical Impression: COVID-19 Instructions: COVID-19 Activity Restrictions/Additional Instructions: *You have been diagnosed with COVID-19 *What to do: Unfortunately we are not set up to do daily infusions of remdesivir in the emergency department. Paxovid is a good alternative. You are high risk. *Continue to take medications as directed Paxmalachi DUNN take as directed please start today if you choose to take it. It is only effective for the 1st 3 days of symptoms Monitor heart rate while taking midrodine *Follow up with your primary care provider in 2-3 days or call [phone] *Return to ER if you should have oxygen less than 90% increased confusion increasing shortness of breath or any new, worsening or concerning symptoms Prescriptions: New Paxlovid (EUA) 300 mg (150 mg x 2)-100 mg tablets,dose pack 2 tab PO QAM AND QPM 5 Days Qty: 20 0RF No Action levothyroxine 150 mcg tablet 150 mcg PO DAILY Qty: 90 0RF Rx Instructions: APPT DUE W/PCP PRIOR TO END OF RX/FUTURE FILLS. PLEASE CALL TO SCHEDULE ANNUAL REVIEW AT EARLIEST CONVENIENCE. THANK YOU 01/01/22 midodrine 2.5 mg tablet 2.5 mg PO PRN PRN (Reason: Blood Pressure) multivitamin Tablet 1 tab PO DAILY triamcinolone acetonide 0.5 % Ointment 1 applic TOPICAL BID polyethylene glycol 3350 [Miralax] 17 gram/dose Powder 17 g PO DAILY ondansetron 8 mg Tablet,Disintegrating 8 mg PO Q8H PRN (Reason: nauseau) Qty: 30 1RF ondansetron 8 mg Tablet,Disintegrating 8 mg PO Q8H PRN (Reason: Nausea And Vomiting) Qty: 30 1RF Onureg 200 mg Tablet 200 mg PO DIRECTED Qty: 14 11RF Rx Instructions: Take 1 pill (200 mg) by mouth on days 1-14 every 28 days acyclovir 800 mg Tablet 800 mg PO BID Qty: 180 1RF voriconazole 200 mg Tablet 200 mg PO Q12H Qty: 180 1RF Rx Instructions: administer on empty stomach, at least 1 hour before or after meal(s) amoxicillin-pot clavulanate 875-125 mg tablet 1 tab PO BID 10 Days Qty: 20 0RF dexamethasone 6 mg tablet 6 mg PO DAILY Qty: 4 0RF dexamethasone 4 mg tablet 4 mg PO DAILY Qty: 4 0RF Cepacol Sore Throat (jeni-men) 15-2.6 mg lozenge 1 arelis mucous membrane Q2-4H PRN (Reason: sore throat) Qty: 16 0RF guaifenesin 600 mg tablet extended release 12hr 600 mg PO BID PRN (Reason: productive cough) Qty: 20 0RF cetirizine 10 mg tablet 20 mg PO BEDTIME Qty: 14 0RF Referrals: Gale Coffey DO [Primary Care Provider] - Visit Report Forms: Patient Portal/API
[2022-08-28 15:43] VITALS: BP 130/63; PULSE 80; RESP 18; O2SAT 100
--- NOTE | 2022-08-28 16:40 | PC.NURSE ---
pt called back to request script to [facility] because [facility] doesn't have paxlovid.
== END 2022-08-28 16:05 | disposition home or self-care (01) ==
PROVIDERS: Emergency Provider Emergency Medicine; PCP Student in an Organized Health Care Education/Training Program
DX: U07.1 COVID-19 (principal)
CPT/HCPCS: 99281

== ENCOUNTER → 2022-09-20 13:51 | Outpatient (CLI) | payer MEDICARE, SELFPAY ==
[2022-09-20 15:40] LABS: COVID19 -Nasal RAPID POSITIVE (Negative)
== END ==
PROVIDERS: PCP Student in an Organized Health Care Education/Training Program; Visit Provider Specialist
DX: U07.1 COVID-19 (principal)
CPT/HCPCS: 87635

== ENCOUNTER 2022-09-21 11:15 | Day surgery (SDC) | payer MEDICARE, SELFPAY ==
--- NOTE | 2022-09-21 | PATH_ITS ---
[facility] Accession Number: [id number] . 01 Material submitted: . testis - RIGHT TESTICLE AND SPERMATACORD . 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 - See comment and microscopic description. [facility] 10/02/2022 1707 Local . 01 Electronically signed: . Armida Jacques MD, Pathologist NPI- [id number] . 01 Gross description: . The specimen is received in formalin labeled with the patient's name, , and right testicle and spermatic cord, and consists of an intact testis (6.6 x 4.8 x 3.8 cm with attached spermatic cord measuring 8.5 cm in length and averaging 2.2 cm in diameter). THe specimen weighs 99 grams. The external fascia is freely mobile with no adhesions identified and is inked blue. The spermatic cord margin is inked orange. Bisecting reveals an ill-defined, webb-green, firm lesion measuring 4.8 x 3.9 x 3.2 cm. There is a central area of hemorrhage measuring 2.9 x 2.2 x 1.8 cm. The lesion appears to grossly involve the tunica albuginea and no gross extension into the epididymis, rete testis, tunica vaginalis, or spermatic cord. The normal testicular parenchym is ko, spongy, and passes the string test. When bisected a small amount of ko serous fluid was identified beneath the tunica vaginalis. The epididymis measures 4.1 cm in length and has several thin smooth-walled cystic structures filled with clear serous fluid measuring 0.7 cm in greatest dimension. Manufacturing Clerk sections are submitted as follows: A1: Lesion to rete testis. A2: Lesion to epididymis. A3: Lesion to normal. A4-A5: Lesion to albuginea and vaginalis. A6: Manufacturing Clerk normal. A7: Manufacturing Clerk spermatic cord and margin en face. ([id number]) /[facility] 09/25/2022 1057 Local . 01 Microscopic: . Histologic sections show testicular tissue broadly replaced by diffuse sheets of large atypical large mononuclear cells with immature nuclear features, dispersed chromatin, prominent nucleoli, irregular nuclear borders, and variable cytoplasm. There are occasional residual seminiferous tubules containing germ cells. The atypical cells are positive for CD34 (patchy), CD117 (patchy), CD15, CD68 (patchy), CD4, CD43, CD45 (patchy); while negative for CD3, PAX5, CICI, and CD10. Additional immunostains for myeloperoxidase (MPO), TDT, and CD123 were sent out to be performed at an outside facility, the results of which will be reported in an addendum. Immunohistochemical stains were indicated and performed on Block A4 with adequate controls. See above for immunophenotypic findings and interpretation. Technical Note: The immunohistochemical stains reported were performed at [facility] ([address] [place], [place] [address]e [address], [facility] [address]). They were developed and their performance characteristics determined by [employer]. They have not been cleared or approved by the U.S. Food and Drug Administration, although such approval is not required for analyte-specific reagents of this type. . Preliminary diagnosis was discussed with medical team RN, Caitlin Schneider on 10/01/2022, at 2:00 PM. . 01 Pathologist provided ICD-10: D47.1 . 01 CPT . 458949, L75851, U84120 Specimen Comment: A courtesy copy of this report has been sent to [phone] Performed at: 01 [facility] [address], [place], [place] [id number] MD Pankaj Cristobal MD Phone: [phone]
--- NOTE | 2022-09-21 11:46 | PM.PREOP ---
Pre-operative Note COVID-19 COVID-19 status: Positive Result date/Date tested (Pos, Neg/Pending): 09/20/22 Criteria for continued procedure: Expected advancement of disease process, Possibility delay results in more complex future surgery or treatment, Deterioration of the patient's condition or overall health, Delay expected to result in less-positive ultimate med/surg outcome and Non-surgical alternatives not available or appropriate per current SOC Interval Note History & Physical reviewed/Exam performed by Physician: Yes Changes to H&P: No
[2022-09-21 12:03] VITALS: BP 146/61; PULSE 74; RESP 16; TEMP 36.6; O2SAT 99; BMI 28.1
[2022-09-21] MEDS: LACTATED RINGERS 1,000 ML 21 ML IV (12:24)
[2022-09-21 13:37] LABS: COVID19 -Nasal RAPID POSITIVE (Negative)
[2022-09-21] MEDS: CEFAZOLIN 2 GM/100 ML PREMIX 100 ML IV (14:39)
--- NOTE | 2022-09-21 14:48 | SUR.OPER ---
Supine on padded OR bed, head on pillow, arms secured on padded arm boards at <90 degrees abduction, legs uncrossed, safety belt at thigh, tape over blanket over lower legs.
[2022-09-21] MEDS: BUPIVACAINE LIPOSOME 266 MG/20 ML VIAL INJ (15:25)
[2022-09-21] MEDS: BUPIVACAINE 0.5% W/ EPI (PF) 30 ML VIAL INJ (15:26)
--- NOTE | 2022-09-21 15:41 | P.OP_ITS ---
Operative Date/Time/Diagnoses Date of procedure: 09/21/22 Time of procedure: 15:30 Pre-op diagnosis: Right testicular neoplasm Post-op diagnosis: other (Right direct inguinal hernia) Procedure & Clinicians Procedure: 1. Right radical orchiectomy. 2. Repair of direct right inguinal hernia without mesh. Same procedure as scheduled: No (Incidental finding of direct inguinal hernia intraoperatively.) Indications: 1. Right testicular neoplasm. Surgeon: Raven Carrington Click Yes if Unassisted: Yes Anesthesia Type: General and Local (0.25% Marcaine with epinephrine and undiluted 1.33% Exparel.) Operative Notes Findings: Essentially normal right inguinal canal tissue planes. Incidental finding of markedly deficient inguinal floor after mobilization of the right spermatic cord from the confines of the right inguinal canal. Closure Type: primary Specimen(s): other (Right testicle, epididymis, and cord to the level of the internal ring.) Estimated Blood Loss (mL): 2 Blood products transfused: none Procedure in detail: Patient was positioned supine and the lower abdomen, genitalia, and groin were then prepped and draped in sterile fashion. A solution of 0.25% Marcaine with epinephrine was then used to infiltrate the skin CIS and subcutaneous tissue overlying the right inguinal canal. An oblique incision was then made and division of the subcutaneous layers was then undertaken using blunt cautery technique down to the level of the external oblique fascia. This was then opened parallel to its fibers along its length. The right cord was then carefully mobilized from its confines within the canal with the findings as described above. At the level of the internal ring the cord was divided into bundles. Most 6 in Gabbie clamps replied teach bundle on the patient's side a single clamp was applied on the specimen side cord was then divided between the clamps. Each of the patient's side bundles were ligated using a stick tie of 0 silk and a free tie of 0 Tycron. The stumps were infiltrated with Exparel anesthetic. Next, the external ring was carefully expanded using blunt technique and the testicle and attached epididymis were then delivered from the right hemiscrotum. The gubernacular was divided using blunt and cautery technique. The specimen was then handed off the field for routine gross and microscopic examination. Next a 0 Tycron was used in an interrupted [id number] fashion to reapproximate transfersalis muscular plane to the Poupart's ligament along the length of the canal with good anatomic approximation. Intraoperative decision not to utilize mesh or foreign body biologic due to patient's severe immunocompromised state. External oblique fascia was closed using a running 2-0 PDS. Holly's fascia was reapproximated using the same suture and technique. The skin was reapproximated using a running subcuticular 4-0 Monocryl. The skin was then cleaned and dried. A small segment of Telfa was then tailored and positioned over the incision line. A medium transparent Op site dressing was then applied over the incision line and surrounding area for Bioclusive finish. Patient with awakened, transferred to [facility] and recovered in the operating room due to COVID positive status before discharge. Complications: none Post-operative Condition: stable Disposition: PACU Plan for aftercare: Discharge home.
[2022-09-21] MEDS: ACETAMINOPHEN IV 1,000 MG/100 ML VIAL 400 MG IV (15:42)
[2022-09-21 15:44] VITALS: BP 137/72; PULSE 68; RESP 14; O2SAT 98
[2022-09-21 15:49] VITALS: BP 130/72; PULSE 56; RESP 14; O2SAT 98
[2022-09-21 15:54] VITALS: BP 121/61; PULSE 54; RESP 14; O2SAT 98
[2022-09-21 16:02] VITALS: BP 129/74; PULSE 63; RESP 14; O2SAT 95
[2022-09-21 16:18] VITALS: BP 134/53; PULSE 62; RESP 14; TEMP 36.2; O2SAT 98
[2022-09-21 17:15] LABS: HCG Quantitative /Beta subunit < 2.4 mIU/mL (<2.40)
[2022-09-22 07:40] LABS: Alpha Fetoprotein 3.4 ng/mL (0.0-8.4)
== END 2022-09-21 16:37 | disposition home or self-care (01) ==
PROVIDERS: PCP Student in an Organized Health Care Education/Training Program; Referring Provider Specialist; Visit Provider Specialist
PROC: (CPT 54530; principal; 2022-09-21 13:15)
DX: C92.30 Myeloid sarcoma, not having achieved remission (principal); C92.01 Acute myeloblastic leukemia, in remission; U07.1 COVID-19
CPT/HCPCS: 54530; 82105; 84702; 87635; C9290; J0131; J0690; J1100; J2250; J2405; J2704; J3010